=== PATIENT | male | born 1970 | race Caucasian/White ===

== ENCOUNTER → 2018-06-06 07:39 | Outpatient (CLI) | payer OTHER, SELFPAY ==
[2018-06-06 09:15] LABS: Alanine Aminotransferase 33 IU/L (21-72); Albumin 4.6 g/dL (3.5-5.0); Albumin Globulin Ratio 1.6 (1.0-2.8); Alkaline Phosphatase 54 U/L (38-126); Aspartate Aminotransferase 28 IU/L (17-59); BUN Creatinine Ratio 18.9 (6-22); Bilirubin Total 0.4 mg/dL (0.2-1.3); Blood Urea Nitrogen 17 mg/dL (9-20); Calcium 9.3 mg/dL (8.4-10.2); Carbon Dioxide 29 mmol/L (22-32); Chloride 101 mmol/L (98-107); Cholesterol 215 mg/dL (140-199); Estimated Glomerular Filt Rate > 60.0 mL/min (>60); Globulin 2.9 g/dL (1.7-4.1); Glucose 95 mg/dL (70-100); HDL Cholesterol 34 mg/dL (40-60); HEMOLYSIS < 15 (0-50); LDL Cholesterol Calculated 137 mg/dL (<100); Sodium 139 mmol/L (137-145); Total Protein 7.5 g/dL (6.3-8.2); Triglycerides 218 mg/dL (35-150)
[2018-06-06 09:29] LABS: Free T4, Direct Thyroxine 1.01 ng/dL (0.78-2.19)
[2018-06-06 09:43] LABS: Thyroid Stimulating Hormone 1.35 uIU/mL (0.47-4.68)
[2018-06-06 10:04] LABS: Vitamin B12 252 pg/mL (239-931)
== END ==
PROVIDERS: PCP Family Medicine; Visit Provider Internal Medicine
DX: I10 Essential (primary) hypertension (principal); K21.9 Gastro-esophageal reflux disease without esophagitis
CPT/HCPCS: 36415; 80053; 80061; 82607; 84439; 84443

== ENCOUNTER 2018-07-18 16:55 | Emergency (ER) | payer OTHER, SELFPAY ==
[2018-07-18 17:05] VITALS: BP 136/92; PULSE 84; RESP 16; TEMP 36.3; O2SAT 97
--- NOTE | 2018-07-18 17:07 | DI.RAD.S_ITS ---
PROCEDURE: XR TOE LT MIN 2V INDICATIONS: crush injury lt great toe TECHNIQUE: 3 views of the left toe(s) acquired. COMPARISON: None. FINDINGS: Bones: No definite or displaced fracture seen. There is moderate irregularity of the distal tuft raising the possibility of distal tuft fracture of his only seen on the lateral view. First MTP joint degeneration. Marginal lucency at the first MTP joint raises the possibility of erosion Soft tissues: Marked soft tissue swelling and laceration involving the distal great toe. IMPRESSION: Possible great toe distal tuft fracture although not well visualized radiographically as above. Dictated by: Ronan Camarillo M.D. on 07/18/2018 at 17:31 Approved by: Ronan Camarillo M.D. on 07/18/2018 at 17:32
[2018-07-18] MEDS: TET,DIPH,PERTUSS(ACELL),VAC/PF 0.5 ML SYRINGE IM (17:10)
--- NOTE | 2018-07-18 18:33 | ED.LOWEXIN ---
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 About 830 this morning he was loading/unloading his truck. He was not wearing shoes. He rolled a Pallet Abilio over his left great toe. He avulsed toenail off the toe. The majority the toenail is going, but portions of tissue or protruding 4th. He has mild bleeding from the site. He is okay with the pain as long as the toe has not been manipulated. There were no other injuries. His last tetanus is unknown. Related Data Home Medications Medication Instructions Recorded Confirmed lisinopril 20 mg tablet 40 mg PO BID tab 05/04/18 06/08/18 omeprazole 20 mg capsule,delayed 20 mg PO DAILY 05/04/18 06/08/18 release Previous Rx's Medication Instructions Recorded cephalexin [Keflex] 500 mg PO Q8H 7 Days #21 cap 07/18/18 Allergies Allergy/AdvReac Type Severity Reaction Status Date / Time No Known Drug Allergies Allergy Verified 06/08/18 13:48 Review of Systems Review of Systems ROS Unobtainable: All systems reviewed & are unremarkable except as noted in HPI and below Constitutional Denies weakness Comments: General good health, no other injuries. Musculoskeletal Reports as per HPI Comments: Limited to left toe injury Integumentary/Breasts Reports wounds Comments: Issues involve only the left great toe Neurologic Denies paresthesias and Denies weakness [facility] Medical History Essential hypertension (Chronic) GERD (gastroesophageal reflux disease) (Chronic) Anxiety (Chronic) Depression (Chronic) Seasonal allergies (Chronic) Family History (Updated 06/09/18 @ 22:08 by Elizabeth Muniz) Mother Breast cancer Lymphoma Diabetes mellitus Mental health problem Grandfather Prostate cancer Mental health problem Grandmother Mental health problem Social History Smoking Status: Former smoker Family History Mother Breast cancer Lymphoma Diabetes mellitus Mental health problem Grandfather Prostate cancer Mental health problem Grandmother Mental health problem Social History Smoking Status: Former smoker Exam Initial Vital Signs Initial Vital Signs: Vital Signs Temperature 97.3 F L 07/18/18 17:05 Pulse Rate 84 07/18/18 17:05 Respiratory Rate 16 07/18/18 17:05 Blood Pressure 136/92 H 07/18/18 17:05 Pulse Oximetry 97 07/18/18 17:05 Const General: cooperative and well developed Nutritional Appearance: well nourished Orientation: alert, awake and oriented x3 Neuro General: alert and oriented x3 Gait: normal gait Other: No numbness or weakness associated with the left great toe injury. Extrem Other: Avulsion of the left great toenail. There is a small residual of nail left at the very distal portion of the avulsed toenail. That residual portions attached to the adjacent skin. The nailbed is bloody. No bony structure can be seen. He has normal range of motion in the toe. Course Course Narrative: The residual portion of the avulsed left great toenail was excised. The site was injected 1% lidocaine, and our scissors were used to remove the small section. The left foot is then soaked in Betadine and saline and the site was cleansed by the patient's nurse. He was placed in a bandage. By the x-ray report there may be a small tuft fracture. I have start him on Keflex, treating him as a potential open fracture. The patient declined pain meds, noting he does not have much pain as long as I am not manipulating his foot. Orders Ordered: ED Orders 07/18/18 17:07 XR toe LT min 2V Stat Discontinued Medications Cephalexin HCl (Keflex) 500 mg PO NOW ONE Stop: 07/18/18 18:34 Diphtheria/Tetanus/Acell Pertussis (Adacel) 0.5 ml IM .ONCE ONE Stop: 07/18/18 17:08 Last Admin: 07/18/18 17:10 Dose: 0.5 ml Vital Signs - 8 hr 07/18/18 17:05 Temperature 97.3 F L Pulse Rate 84 Respiratory Rate 16 Blood Pressure 136/92 H Pulse Oximetry 97 MDM - Extremity Injury (Lower) Imaging Data Left toes: Radiologist's impression: 66 Johnny Aldana MD Find Patient Imaging Mireille Barbosa 48 M 1970 ACTIVITY DATE EXAM STATUS AUTHOR 07/18/18 17:[address] [address] XRay Report Signed Patient: Mireille BarbosaMR#: [id number] : 1970Acct:[id number] Age/Sex: 48 / MDate of Service: 07/18/18 Loc: ED Accession Number: [id number] Procedure: XR toe LT min 2V Ordering Provider: Kitty Jones PROCEDURE: XR TOE LT MIN 2V INDICATIONS: crush injury lt great toe TECHNIQUE: 3 views of the left toe(s) acquired. COMPARISON: None. FINDINGS: Bones: No definite or displaced fracture seen. There is moderate irregularity of the distal tuft raising the possibility of distal tuft fracture of his only seen on the lateral view. First MTP joint degeneration. Marginal lucency at the first MTP joint raises the possibility of erosion Soft tissues: Marked soft tissue swelling and laceration involving the distal great toe. IMPRESSION: Possible great toe distal tuft fracture although not well visualized radiographically as above. Dictated by: Ronan Camarillo M.D. on 07/18/2018 at 17:31 Approved by: Ronan Camarillo M.D. on 07/18/2018 at 17:32 Discharge Plan Departure Patient Disposition: Home Clinical Impression: Nail avulsion of toe Qualifiers: Encounter type: initial encounter Qualified Code(s): S91.209A - Unspecified open wound of unspecified toe(s) with damage to nail, initial encounter Instructions: DI for Nail Avulsion Injury Activity Restrictions/Additional Instructions: Keep the bandage in place for 48 hours. Keflex 3 times daily as prescribed. Tylenol or Advil as needed for pain. After 48 hours, take the bandage off and clean/soak the injury. I would recommend a bandage on the toe while at work initially, until pain resolves. Your next toenail will require several months to regrow. If you have concerns about the wound follow-up with her doctor or return here. Prescriptions: New cephalexin [Keflex] 500 mg capsule 500 mg PO Q8H 7 Days Qty: 21 RF: 0 No Action omeprazole 20 mg capsule,delayed release(DR/EC) 20 mg PO DAILY RF: 0 lisinopril 20 mg tablet 40 mg PO BID RF: 0 Referrals: David Webb MD [Primary Care Provider] -
--- NOTE | 2018-07-18 18:40 | ED_ITS ---
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 He was not wearing shoes. He rolled a Pallet Abilio over his left great toe. He avulsed toenail off the toe. The majority the toenail is going, but portions of tissue or protruding 4th. He has mild bleeding from the site. He is okay with the pain as long as the toe has not been manipulated. There were no other injuries. His last tetanus is unknown. Related Data Home Medications Medication Instructions Recorded Confirmed lisinopril 20 mg tablet 40 mg PO BID tab 05/04/18 06/08/18 omeprazole 20 mg capsule,delayed 20 mg PO DAILY 05/04/18 06/08/18 release Previous Rx's Medication Instructions Recorded cephalexin [Keflex] 500 mg PO Q8H 7 Days #21 cap 07/18/18 Allergies Allergy/AdvReac Type Severity Reaction Status Date / Time No Known Drug Allergies Allergy Verified 06/08/18 13:48 Review of Systems Review of Systems ROS Unobtainable: All systems reviewed & are unremarkable except as noted in HPI and below Constitutional Denies weakness Comments: General good health, no other injuries. Musculoskeletal Reports as per HPI Comments: Limited to left toe injury Integumentary/Breasts Reports wounds Comments: Issues involve only the left great toe Neurologic Denies paresthesias and Denies weakness [facility] Medical History Essential hypertension (Chronic) GERD (gastroesophageal reflux disease) (Chronic) Anxiety (Chronic) Depression (Chronic) Seasonal allergies (Chronic) Family History (Updated 06/09/18 @ 22:08 by Elizabeth Muniz) Mother Breast cancer Lymphoma Diabetes mellitus Mental health problem Grandfather Prostate cancer Mental health problem Grandmother Mental health problem Social History Smoking Status: Former smoker Family History Mother Breast cancer Lymphoma Diabetes mellitus Mental health problem Grandfather Prostate cancer Mental health problem Grandmother Mental health problem Social History Smoking Status: Former smoker Exam Initial Vital Signs Initial Vital Signs: Vital Signs Temperature 97.3 F L 07/18/18 17:05 Pulse Rate 84 07/18/18 17:05 Respiratory Rate 16 07/18/18 17:05 Blood Pressure 136/92 H 07/18/18 17:05 Pulse Oximetry 97 07/18/18 17:05 Const General: cooperative and well developed Nutritional Appearance: well nourished Orientation: alert, awake and oriented x3 Neuro General: alert and oriented x3 Gait: normal gait Other: No numbness or weakness associated with the left great toe injury. Extrem Other: Avulsion of the left great toenail. There is a small residual of nail left at the very distal portion of the avulsed toenail. That residual portions attached to the adjacent skin. The nailbed is bloody. No bony structure can be seen. He has normal range of motion in the toe. Course Course Narrative: The residual portion of the avulsed left great toenail was excised. The site was injected 1% lidocaine, and our scissors were used to remove the small section. The left foot is then soaked in Betadine and saline and the site was cleansed by the patient's nurse. He was placed in a bandage. By the x-ray report there may be a small tuft fracture. I have start him on Keflex, treating him as a potential open fracture. The patient declined pain meds, noting he does not have much pain as long as I am not manipulating his foot. Orders Ordered: ED Orders 07/18/18 17:07 XR toe LT min 2V Stat Discontinued Medications Cephalexin HCl (Keflex) 500 mg PO NOW ONE Stop: 07/18/18 18:34 Diphtheria/Tetanus/Acell Pertussis (Adacel) 0.5 ml IM .ONCE ONE Stop: 07/18/18 17:08 Last Admin: 07/18/18 17:10 Dose: 0.5 ml Vital Signs - 8 hr 07/18/18 17:05 Temperature 97.3 F L Pulse Rate 84 Respiratory Rate 16 Blood Pressure 136/92 H Pulse Oximetry 97 MDM - Extremity Injury (Lower) Imaging Data Left toes: Radiologist's impression: 66 Johnny Aldana MD Find Patient Imaging Mireille Barbosa 48 M 1970 ACTIVITY DATE EXAM STATUS AUTHOR 07/18/18 17:[address] [address] XRay Report Signed Patient: Mireille BarbosaMR#: [id number] : 1970Acct:[id number] Age/Sex: 48 / MDate of Service: 07/18/18 Loc: ED Accession Number: [id number] Procedure: XR toe LT min 2V Ordering Provider: Kitty Jones PROCEDURE: XR TOE LT MIN 2V INDICATIONS: crush injury lt great toe TECHNIQUE: 3 views of the left toe(s) acquired. COMPARISON: None. FINDINGS: Bones: No definite or displaced fracture seen. There is moderate irregularity of the distal tuft raising the possibility of distal tuft fracture of his only seen on the lateral view. First MTP joint degeneration. Marginal lucency at the first MTP joint raises the possibility of erosion Soft tissues: Marked soft tissue swelling and laceration involving the distal great toe. IMPRESSION: Possible great toe distal tuft fracture although not well visualized radiographically as above. Dictated by: Ronan Camarillo M.D. on 07/18/2018 at 17:31 Approved by: Ronan Camarillo M.D. on 07/18/2018 at 17:32 Discharge Plan Departure Patient Disposition: Home Clinical Impression: Nail avulsion of toe Qualifiers: Encounter type: initial encounter Qualified Code(s): S91.209A - Unspecified open wound of unspecified toe(s) with damage to nail, initial encounter Instructions: DI for Nail Avulsion Injury Activity Restrictions/Additional Instructions: Keep the bandage in place for 48 hours. Keflex 3 times daily as prescribed. Tylenol or Advil as needed for pain. After 48 hours, take the bandage off and clean/soak the injury. I would recommend a bandage on the toe while at work initially, until pain resolves. Your next toenail will require several months to regrow. If you have concerns about the wound follow-up with her doctor or return here. Prescriptions: New cephalexin [Keflex] 500 mg capsule 500 mg PO Q8H 7 Days Qty: 21 RF: 0 No Action omeprazole 20 mg capsule,delayed release(DR/EC) 20 mg PO DAILY RF: 0 lisinopril 20 mg tablet 40 mg PO BID RF: 0 Referrals: David Webb MD [Primary Care Provider] -
[2018-07-18] MEDS: cephALEXin 250 MG CAPSULE 500 MG PO (19:01)
== END 2018-07-18 19:12 | disposition home or self-care (01) ==
PROVIDERS: Emergency Provider Emergency Medicine; PCP Family Medicine
DX: S91.202A Unspecified open wound of left great toe with damage to nail, initial encounter (principal); W31.89XA Contact with other specified machinery, initial encounter; Y99.0 Civilian activity done for income or pay; Z23 Encounter for immunization
CPT/HCPCS: 73660; 90471; 99282; 99283; 90715

== ENCOUNTER → 2019-08-09 16:02 | Outpatient (CLI) | payer OTHER, SELFPAY ==
[2019-08-09 16:09] LABS: Bacteria Urine None Seen
[2019-08-09 16:24] LABS: Appearance Urine UA CLEAR; Bilirubin Urine UA NEGATIVE (NEGATIVE); Color Urine UA YELLOW; Glucose Urine UA NEGATIVE (Negative); Ketones Urine UA NEGATIVE (NEGATIVE); Leukocyte Esterase Urine UA NEGATIVE (NEGATIVE); Nitrite Urine UA NEGATIVE (Negative); Occult Blood Urine UA TRACE-LYSED (Negative); Protein Urine UA NEGATIVE (Negative); Urobilinogen Urine UA 0.2 E.U./dL (0.2); pH Urine UA 5.5 (4.5-8.0)
[2019-08-09 16:34] LABS: Culture Indicated Urine Cult Not Indicated; RBC Urine 0-1/HPF (0-5/HPF); Squamous Epithelial Cell Urine 0-1 /HPF (0-5/HPF); WBC Urine 0-1/HPF (0-5/HPF)
[2019-08-09 16:36] LABS: Erythrocyte Sedimentation Rate 1 MM/HR (0-15)
[2019-08-09 17:23] LABS: Alanine Aminotransferase 26 IU/L (<50); Albumin 5.1 g/dL (3.5-5.0); Albumin Globulin Ratio 1.7 (1.0-2.8); Alkaline Phosphatase 62 U/L (38-126); Aspartate Aminotransferase 28 IU/L (17-59); BUN Creatinine Ratio 18.4 (6-22); Bilirubin Total 0.4 mg/dL (0.2-1.3); Blood Urea Nitrogen 16 mg/dL (9-20); Calcium 9.9 mg/dL (8.4-10.2); Carbon Dioxide 23 mmol/L (22-32); Chloride 101 mmol/L (98-107); Estimated Glomerular Filt Rate > 60.0 mL/min (>60); Glucose 110 mg/dL (70-100); HEMOLYSIS < 15 (0-50); Potassium 4.4 mmol/L (3.4-5.1); Sodium 135 mmol/L (137-145); Total Protein 8.1 g/dL (6.3-8.2)
[2019-08-09 17:24] LABS: C-Reactive Protein Quant < 0.5 mg/dL (<1.0)
[2019-08-09 17:51] LABS: Prostate Specific Antigen 0.589 ng/mL (0.10-4.00)
== END ==
PROVIDERS: PCP Family Medicine; Referring Provider Internal Medicine; Visit Provider Internal Medicine
DX: N41.9 Inflammatory disease of prostate, unspecified (principal); R10.2 Pelvic and perineal pain
CPT/HCPCS: 36415; 80053; 81001; 84153; 85651; 86140

== ENCOUNTER → 2020-04-17 07:53 | Outpatient (CLI) | payer OTHER, SELFPAY ==
[2020-04-17 08:50] LABS: Alanine Aminotransferase 29 IU/L (<50); Albumin 4.7 g/dL (3.5-5.0); Albumin Globulin Ratio 1.6 (1.0-2.8); Alkaline Phosphatase 65 U/L (38-126); Aspartate Aminotransferase 29 IU/L (17-59); BUN Creatinine Ratio 18.8 (6-22); Bilirubin Total 0.5 mg/dL (0.2-1.3); Blood Urea Nitrogen 19 mg/dL (9-20); Calcium 9.8 mg/dL (8.4-10.2); Carbon Dioxide 34 mmol/L (22-32); Chloride 101 mmol/L (98-107); Cholesterol 204 mg/dL (140-199); Estimated Glomerular Filt Rate > 60.0 mL/min (>60); Globulin 2.9 g/dL (1.7-4.1); Glucose 105 mg/dL (70-100); HDL Cholesterol 34 mg/dL (40-60); HEMOLYSIS < 15 (0-50); LDL Cholesterol Calculated 126 mg/dL (<100); Potassium 4.8 mmol/L (3.4-5.1); Sodium 137 mmol/L (137-145); Total Protein 7.6 g/dL (6.3-8.2); Triglycerides 222 mg/dL (35-150)
[2020-04-20 14:43] LABS: Fecal Immunochemical Test Negative (Negative)
== END ==
PROVIDERS: PCP Internal Medicine; Referring Provider Internal Medicine; Visit Provider Internal Medicine
DX: I10 Essential (primary) hypertension (principal); K21.9 Gastro-esophageal reflux disease without esophagitis; N13.8 Other obstructive and reflux uropathy; N40.1 Benign prostatic hyperplasia with lower urinary tract symptoms; Z12.11 Encounter for screening for malignant neoplasm of colon
CPT/HCPCS: 36415; 80053; 80061; 82274